=== PATIENT | female | born 1980 | race Caucasian/White ===

== ENCOUNTER 2019-03-21 22:50 | Emergency (ER) | payer OTHER ==
[2019-03-21 22:54] VITALS: TEMP 100; BMI 34.3
--- NOTE | 2019-03-22 00:07 | PDOC ---
History of Present Illness - General Chief Complaint: Cold Symptoms Stated Complaint: VOMITING Time Seen by Provider: 03/22/19 00:06 - History of Present Illness Initial Comments: HPI: 38yo F with PMH of slipped disc, chronic back pain since age 21, asthma, bipolar , PTSD, OCD, borderline personal disorder presenting with severe pain that started at 6pm. Patient describes the pain as "my back pushing into my stomach. " Having trouble getting in a comfortable position. Has not taken anything for pain at home. This pain may be similar to her chronic back pain, but it is much worse. The pain is in her back radiating down her left leg and diffusely in her abdomen. Vomited two to three times today after her pain started. Currently feeling nauseous. Reports congestion and cough. Is not on any medications currently because she is trying to get . LMP about one month ago. Denies urinary syptoms. No chest pain or shortness of breath. Did not get a flu shot this season. No saddle anesthesia, no urinary/stool incontinence. Reports chills. PCP: Dr. Janet Otto ROS: Constitutional: +fever, +chills HEENT: no throat pain, no dysphagia Cardiovascular: no chest pain, no palpitations Respiratory: no cough, no shortness of breath Gastrointestinal: +abdominal pain,+vomiting Genitourinary: no dysuria, no hematuria Musculoskeletal: no myalgia, +back pain Skin: no rash, no itching Neurologic: no headache, no weakness Psych: no agitation, no anxiety PE: General: Awake, alert, and fully oriented, yelping in pain with movement Head: No signs of trauma Eyes: EOMI, sclera anicteric ENT: Moist mucus membranes Neck: Normal ROM, supple Lungs: Lungs clear, Normal breath sounds Cardio: Regular rhythm, S1 and S2 present Abdomen: Diffusely tender to palpation Extremities: Normal range of motion, Distal pulses present SKIN: Warm, Dry, normal turgor Neurologic: Cranial nerves II through XII grossly intact. Normal speech Back: Tender to palpation in lumbar area, midline, no deformities/fluctuance; no overlying wound or lesion; Able to ambulate with steady gait, mildly antalgic ED Course/MDM: DDX including but not limited to nephrolithiasis, lumbago, UTI/pyelonephritis, influenza, appendicitis, gastritis, gastroenteritis, appendicitis, ovarian torsion, ectopic , back pain Labs Ofirmev Pepcid Zofran Fluids Morphine Will reassess 03/22/19 00:07 CBC WBC 9.6 K/mm3 (4.0-10.0) 03/22/19 01:28 RBC 4.60 M/mm3 (3.60-5.2) 03/22/19 01:28 Hgb 14.5 GM/dL (10.7-15.3) 03/22/19 01:28 Hct 42.2 % (32.4-45.2) 03/22/19 01:28 MCV 91.7 fl (80-96) 03/22/19 01:28 MCH 31.5 pg (25.7-33.7) 03/22/19 01:28 MCHC 34.4 g/dl (32.0-36.0) 03/22/19 01:28 RDW 12.5 % (11.6-15.6) 03/22/19 01:28 Plt Count 237 K/MM3 (134-434) 03/22/19 01:28 MPV 8.8 fl (7.5-11.1) 03/22/19 01:28 Absolute Neuts (auto) 8.5 K/mm3 (1.5-8.0) H 03/22/19 01:28 Neutrophils % 88.3 % (42.8-82.8) H 03/22/19 01:28 Lymphocytes % 3.3 % (8-40) L 03/22/19 01:28 Monocytes % 7.2 % (3.8-10.2) 03/22/19 01:28 Eosinophils % 0.9 % (0-4.5) 03/22/19 01:28 Basophils % 0.3 % (0-2.0) 03/22/19 01:28 Nucleated RBC % 0 % (0-0) 03/22/19 01:28 No leukocytosis UA with infection; macrobid ordered 03/22/19 01:50 Flu negative Pending CTAP 03/22/19 03:13 CT as read by imaging nutrition professor: "HISTORY: Flank pain and UTI COMPARISON: None. FINDINGS: Lung bases are clear. The visualized cardiac chambers are normal size and configuration. Normal liver, gallbladder, pancreas, spleen, adrenal glands and kidneys. The stomach and abdominal small and large bowel are normal. There is no aortic aneurysm. There is no significant retroperitoneal lymphadenopathy. The pelvic small and large bowel are normal. The appendix is normal. A 19 mm right ovarian cyst is noted. The uterus and left adnexal structures are normal. Urinary bladder is unremarkable. There is no pelvic free fluid. No discrete pelvic lymphadenopathy is identified.IMPRESSION: No evidence of acute pathology. 19 mm right ovarian cyst and trace pelvic free fluid." Patient feeling better distribution center manager referral Return precautions Stable for discharge 03/22/19 06:45 Past History - Past Medical History Allergies/Adverse Reactions: Allergies Allergy/AdvReac Type Severity Reaction Status Date / Time Penicillins Allergy Verified 03/21/19 22:55 Sulfa (Sulfonamide Allergy Verified 03/21/19 22:55 Antibiotics) Home Medications: Ambulatory Orders Nitrofurantoin Monohyd/M-Cryst [Macrobid -] 100 mg PO BID #14 capsule 03/22/19 Asthma: Yes COPD: No - Psycho Social/Smoking Cessation Hx Smoking History: Current some day smoker Information on smoking cessation initiated: Yes *Physical Exam - Vital Signs Last Vital Signs Temp Pulse Resp BP Pulse Ox 100.0 F H 136 H 20 157/91 97 03/21/19 22:52 03/21/19 22:52 03/21/19 22:52 03/21/19 22:52 03/21/19 22:52 ED Treatment Course - LABORATORY CBC & Chemistry Diagram: 03/22/19 01:28 03/22/19 01:28 Discharge - Discharge Information Problems reviewed: Yes Clinical Impression/Diagnosis: UTI (urinary tract infection) Qualifiers: Urinary tract infection type: site unspecified Hematuria presence: without hematuria Qualified Code(s): N39.0 - Urinary tract infection, site not specified Ovarian cyst Qualifiers: Laterality: right Qualified Code(s): N83.201 - Unspecified ovarian cyst, right side Condition: Stable Disposition: HOME - Additional Discharge Information Prescriptions: Nitrofurantoin Monohyd/M-Cryst [Macrobid -] 100 mg PO BID #14 capsule - Follow up/Referral Referrals: Castro Suarez [Primary Care Provider] - Yannick Bain MD [Staff Physician] - - Patient Discharge Instructions Patient Printed Discharge Instructions: DI for Urinary Tract Infection (UTI), DI for Ovarian Cyst Additional Instructions: You came into the emergency department for abdominal pain. Labs did not indicate acute pathology. Your urinalysis showed signs of infection. A CT scan showed an ovarian cyst. Antibiotics prescription sent to your pharmacy. You can take [id number]-gox-gsmdnde tylenol or motrin for pain. Follow the instructions on the medication bottle. Follow-up with your primary care provider and class c driver within 72 hours to discuss this ED visit and to further evaluate your symptoms. Call today or tomorrow morning and make an appointment. Your workup is not complete until you do so. We have referred you to an class c driver specialist in case you do no have one. Immediate medical attention is required if you develop: worsening pain, high fevers, persistent nausea, vomiting, or any new or concerning symptoms. If you think you are having an emergency, call for emergency medical services or present to the emergency department right away. - Post Discharge Activity
--- NOTE | 2019-03-22 00:18 | PDOC ---
Attending Attestation - Resident Resident Name: Lilia Kumar - ED Attending Attestation I have performed the following: I have examined & evaluated the patient, The case was reviewed & discussed with the resident, I agree w/resident's findings & plan - HPI HPI: 03/22/19 00:18 Pt comes with back pain acute on chronic type. 03/26/19 20:51 38yo F with PMH of slipped disc, chronic back pain since age 21, asthma, bipolar , PTSD, OCD, borderline personal disorder presenting with severe pain that started at 6pm. Patient describes the pain as "my back pushing into my stomach. " Having trouble getting in a comfortable position. Has not taken anything for pain at home. This pain may be similar to her chronic back pain, but it is much worse. The pain is in her back radiating down her left leg and diffusely in her abdomen. Vomited two to three times today after her pain started. 03/26/19 20:51 - Physicial Exam PE: 03/22/19 00:18 Agree with resident exam - Medical Decision Making 03/22/19 01:00 Pt has a low grade temp. 03/22/19 03:56 Patient Name: RAYMOND EASLEY THIS IS A PRELIMINARY REPORT FROM [facility] DATE OF SERVICE: 2019-03-22 03:09:21 IMAGES: [id number] EXAM: ABDOMEN \\T\\ PELVIS CT WITH CONTR HISTORY: Flank pain and UTI COMPARISON: None. FINDINGS: Lung bases are clear. The visualized cardiac chambers are normal size and configuration. Normal liver, gallbladder, pancreas, spleen, adrenal glands and kidneys. The stomach and abdominal small and large bowel are normal. There is no aortic aneurysm. There is no significant retroperitoneal lymphadenopathy. The pelvic small and large bowel are normal. The appendix is normal. A 19 mm right ovarian cyst is noted. The uterus and left adnexal structures are normal. Urinary bladder is unremarkable. There is no pelvic free fluid. No discrete pelvic lymphadenopathy is identified. IMPRESSION: No evidence of acute pathology. 19 mm right ovarian cyst and trace pelvic free fluid
[2019-03-22] MEDS ORDERED: SODIUM CHLORIDE 1,000 ML IV STA (00:27)
[2019-03-22] MEDS ORDERED: FAMOTIDINE 20 MG/50 ML IVPB 20 MG/50 ML MG IVPB ONE ×2 (00:27→01:25)
[2019-03-22] MEDS ORDERED: ACETAMINOPHEN 1000 MG/100 ML VIAL (NON FORMULARY) IVPB ONE (00:27)
[2019-03-22] MEDS ORDERED: ONDANSETRON 4 MG/2 ML VIAL IVPUSH ONE (00:27)
[2019-03-22] MEDS ORDERED: morphine CARPU-JECT 2 MG/1 ML DISP.SYRIN IVPUSH ONE (00:29)
[2019-03-22] MEDS ORDERED: ONDANSETRON 4 MG/2 ML VIAL ONE (01:25)
[2019-03-22] MEDS ORDERED: ACETAMINOPHEN INJECTION 100 ML IVPB ONE (01:25)
[2019-03-22 01:41] LABS: BASO % 0.3 % (0-2.0); EOS % 0.9 % (0-4.5); HEMATOCRIT 42.2 % (32.4-45.2); HEMOGLOBIN 14.5 GM/dL (10.7-15.3); LYMPH % 3.3 % (8-40); MCH 31.5 pg (25.7-33.7); MCHC 34.4 g/dl (32.0-36.0); MEAN CELL VOLUME 91.7 fl (80-96); MEAN PLT VOLUME 8.8 fl (7.5-11.1); MONO % 7.2 % (3.8-10.2); NEUT % 88.3 % (42.8-82.8); PLATELET COUNT 237 K/MM3 (134-434); RDW 12.5 % (11.6-15.6); WHITE BLOOD COUNT 9.6 K/mm3 (4.0-10.0)
[2019-03-22 01:47] LABS: EPI CELLS 2.4 /HPF (0-5/HPF); HYALINE CASTS 1 /lpf (0-8); PH,URINE 5.5 (5.0-8.0); URINE APPEARANCE CLOUDY; URINE BACTERIA 253.6 /hpf (NEGATIVE); URINE BILIRUBIN NEGATIVE (NEGATIVE); URINE COLOR YELLOW; URINE GLUCOSE (UA) NEGATIVE (NEGATIVE); URINE KETONE 1+ (NEGATIVE); URINE LEUK ESTERASE 2+ (NEGATIVE); URINE NITRITE NEGATIVE (NEGATIVE); URINE PROTEIN NEGATIVE (NEGATIVE); URINE RBC 8 /hpf (0-4); URINE UROBILINOGEN 0.2 mg/dL (0.2-1.0); URINE WBC 23 /hpf (0-5)
[2019-03-22] MEDS ORDERED: NITROFURANTOIN MACROCRYSTAL 50 MG CAPSULE (FP) PO SCH (02:00)
[2019-03-22 02:08] LABS: ALBUMIN 4.3 g/dl (3.4-5.0); BILIRUBIN,TOTAL 0.9 mg/dL (0.2-1); BLOOD UREA NITROGEN 7.9 mg/dL (7-18); CALCIUM 8.9 mg/dL (8.5-10.1); CREATININE 0.8 mg/dL (0.55-1.3); POTASSIUM 3.2 mmol/L (3.5-5.1); TOT PROT 7.7 g/dl (6.4-8.2)
[2019-03-22] MEDS ORDERED: NITROFURANTOIN MACROCRYSTAL 50 MG CAPSULE (FP) ONE (02:20)
[2019-03-22] MEDS ORDERED: MORPHINE SULFATE 2 MG/ML VIAL ONE (02:20)
[2019-03-22 02:39] VITALS: BP 149/83; PULSE 100
[2019-03-22] MEDS ORDERED: POTASSIUM CHLORIDE TABS 20 MEQ TABLET.ER (FP) PO ONE ×2 (03:05→04:06)
[2019-03-22] MEDS ORDERED: MAGNESIUM SULF 50% (8.12 MEQ/2 ML-1 GM VIAL) IVPB ONE (03:05)
[2019-03-22] MEDS ORDERED: MAGNESIUM SULF 50% (8.12 MEQ/2 ML-1 GM VIAL) ONE (04:07)
== END 2019-03-22 04:40 | disposition home or self-care (01) ==
LOC: JER 22:50 → SUPCPDRO 22:50 → JER 03-22 04:25
PROC: 3E033GC Introduction of Other Therapeutic Substance into Peripheral Vein, Percutaneous Approach (ICD-10-PCS; principal; 2019-03-21)
PROC: 3E033GC Introduction of Other Therapeutic Substance into Peripheral Vein, Percutaneous Approach (ICD-10-PCS; 2019-03-21)
PROC: 3E033GC Introduction of Other Therapeutic Substance into Peripheral Vein, Percutaneous Approach (ICD-10-PCS; 2019-03-21)
PROC: 3E033NZ Introduction of Analgesics, Hypnotics, Sedatives into Peripheral Vein, Percutaneous Approach (ICD-10-PCS; 2019-03-21)
PROC: 3E033NZ Introduction of Analgesics, Hypnotics, Sedatives into Peripheral Vein, Percutaneous Approach (ICD-10-PCS; 2019-03-21)
DX: N39.0 Urinary tract infection, site not specified (principal); N83.201 Unspecified ovarian cyst, right side; Z88.0 Allergy status to penicillin; Z88.2 Allergy status to sulfonamides; J45.909 Unspecified asthma, uncomplicated; Z86.59 Personal history of other mental and behavioral disorders
CPT/HCPCS: 36415; 71045-TC-FY; 74177-TC; 80053; 81003; 83690; 84703; 85025; 87086; 87804; 99284-25; J0131; J7030; Q9967

== ENCOUNTER 2020-03-27 20:31 | Emergency (ER) | payer OTHER ==
[2020-03-27 20:41] VITALS: BP 150/109; PULSE 100; TEMP 98.6; BMI 34.3
[2020-03-27] MEDS ORDERED: CODEINE SO4 30 MG TABLET PO ONE (22:59)
[2020-03-28] MEDS ORDERED: ALBUTEROL SO4 HFA INHALER IH ONE ×2 (00:16)
== END 2020-03-28 00:21 | disposition home or self-care (01) ==
LOC: JER 20:31
DX: J06.9 Acute upper respiratory infection, unspecified (principal)
CPT/HCPCS: 71046-TC-FY; 87804; 93005; 93010; 99285-25; C9803; U0003

== ENCOUNTER 2020-06-14 19:56 | Emergency (ER) | payer OTHER ==
[2020-06-14 20:11] VITALS: BMI 32.5
[2020-06-14] MEDS ORDERED: LACTATED RINGERS SOLUTION 1000 ML INFUS.BAG IV ONE ×2 (21:16→22:25)
[2020-06-14] MEDS ORDERED: ONDANSETRON 4 MG/2 ML VIAL IVPUSH ONE (21:16)
[2020-06-14] MEDS ORDERED: ONDANSETRON 4 MG/2 ML VIAL ONE (21:30)
[2020-06-14 21:59] LABS: EOS % 1.4 % (0-4.5); HEMATOCRIT 43.4 % (32.4-45.2); LYMPH % 11.3 % (8-40); MCH 31.9 pg (25.7-33.7); MCHC 34.5 g/dl (32.0-36.0); MEAN CELL VOLUME 92.6 fl (80-96); MEAN PLT VOLUME 8.3 fl (7.5-11.1); MONO % 11.5 % (3.8-10.2); NEUT % 74.8 % (42.8-82.8); PLATELET COUNT 233 K/MM3 (134-434); RBC 4.69 M/mm3 (3.60-5.2); RDW 13.1 % (11.6-15.6)
[2020-06-14 22:05] LABS: EPI CELLS 17 /uL (0-25.1); HYALINE CASTS 0 /uL (0-3.1); URINE APPEARANCE CLEAR; URINE BACTERIA 529 /uL (0-1359); URINE BILIRUBIN NEGATIVE (NEGATIVE); URINE COLOR YELLOW; URINE GLUCOSE (UA) NEGATIVE (NEGATIVE); URINE KETONE NEGATIVE (NEGATIVE); URINE LEUK ESTERASE 2+ (NEGATIVE); URINE NITRITE NEGATIVE (NEGATIVE); URINE PROTEIN NEGATIVE (NEGATIVE); URINE RBC 4 /uL (0-23.9); URINE UROBILINOGEN 0.2 mg/dL (0.2-1.0); URINE WBC 32 /uL (0-25.8)
[2020-06-14 22:11] LABS: INR 1.04 (0.83-1.09); PROTHROMBIN TIME (PATIENT) 12.6 SEC (9.7-13.0)
[2020-06-14 22:14] LABS: ACTIVATED PTT 31.1 SECONDS (25.2-36.5)
[2020-06-14 22:21] LABS: ALBUMIN 4.4 g/dl (3.4-5.0); BLOOD UREA NITROGEN 5.1 mg/dL (7-18)
[2020-06-14 22:24] LABS: CREATININE 0.8 mg/dL (0.55-1.3)
[2020-06-14 22:25] LABS: TOT PROT 7.6 g/dl (6.4-8.2)
[2020-06-14] MEDS ORDERED: METOCLOPRAMIDE HCL INJECTION 10 MG/2 ML VIAL IVPB ONE (22:25)
[2020-06-14] MEDS ORDERED: ACETAMINOPHEN 1000 MG/100 ML VIAL (NON FORMULARY) IVPB ONE (22:25)
[2020-06-14 22:55] LABS: BILIRUBIN,TOTAL 0.6 mg/dL (0.2-1)
[2020-06-14] MEDS ORDERED: METOCLOPRAMIDE HCL INJECTION 10 MG/2 ML VIAL ONE (22:55)
[2020-06-14] MEDS ORDERED: ACETAMINOPHEN INJECTION 100 ML IVPB ONE (22:55)
[2020-06-15 00:01] VITALS: BP 154/93; PULSE 109; TEMP 99.9
== END 2020-06-15 04:18 | disposition home or self-care (01) ==
LOC: JER 19:56
PROC: 3E0333Z Introduction of Anti-inflammatory into Peripheral Vein, Percutaneous Approach (ICD-10-PCS; principal; 2020-06-14)
PROC: 3E033GC Introduction of Other Therapeutic Substance into Peripheral Vein, Percutaneous Approach (ICD-10-PCS; 2020-06-14)
DX: R53.1 Weakness (principal); T50.Z95A Adverse effect of other vaccines and biological substances, initial encounter
CPT/HCPCS: 36415; 80053; 81003; 84703; 85025; 85610; 85730; 87086; 99284-25; J0131

== ENCOUNTER 2020-08-31 23:47 | Emergency (ER) | payer OTHER ==
[2020-09-01 00:15] VITALS: TEMP 98.4; BMI 36.0
[2020-09-01] MEDS ORDERED: diphenhydrAMINE HCL 50 MG CAPSULE PO ONE (00:28)
[2020-09-01] MEDS ORDERED: predniSONE 20 MG TABLET (UD) PO ONE (00:29)
[2020-09-01] MEDS ORDERED: predniSONE 20 MG TABLET (UD) ONE (00:31)
[2020-09-01] MEDS ORDERED: diphenhydrAMINE HCL 25 MG CAPSULE (FP) PO ONE (00:32)
[2020-09-01 02:18] VITALS: BP 149/104; PULSE 99
[2020-09-01] MEDS ORDERED: DOXYCYCLINE HYCLATE 100 MG CAPSULE PO SCH (10:00)
== END 2020-09-01 02:35 | disposition home or self-care (01) ==
LOC: JER 23:47
DX: T78.40XA Allergy, unspecified, initial encounter (principal)
CPT/HCPCS: 99283-25